=== PATIENT | male | born 1960 | race Caucasian/White ===

== ENCOUNTER 2021-01-31 09:43 | Inpatient (IN) | payer BC ==
[2021-01-31] MEDS ORDERED: SODIUM CHLORIDE 0.9% 500 ML 500 ML IV STA (10:09)
[2021-01-31] MEDS ORDERED: KETOROLAC 15 MG/ML 1 ML VIAL IVP STA (10:09)
[2021-01-31] MEDS ORDERED: cefTRIAXone IN SWFI 1,000 MG/10 ML SYRINGE IVP STA (10:20)
[2021-01-31] MEDS ORDERED: VANCOMYCIN IV PER PHARMACY 1 EACH MISC MISCELLANE PRN (10:20)
[2021-01-31] MEDS ORDERED: VANCOMYCIN 1,750 MG in SODIUM CHLORIDE 0.9% 500 ML 500 ML IVPB STA (10:22)
--- NOTE | 2021-01-31 10:26 | ED ---
Skin/Abscess/FB HPI - General Chief complaint: Skin/Abscess/Foreign Body Stated complaint: Cellulitis on Rt leg Time Seen by Provider: 01/31/21 09:52 Source: patient, family Mode of arrival: ambulatory Limitations: no limitations - History of Present Illness Initial comments: Patient is a 60-year-old male presenting to the emergency Department with comp laints of an infection on his right leg. He states he was seen by his PCP who recommended coming into the ER for evaluation. He noticed a little bit of redness to his right lower leg last week, he states it was small in nature, anterior aspect. He states over the past 3 days it has quickly spread and he has been having fevers. He states yesterday he had a fever 101, has been taking Tylenol which does help. His states that 2 days ago it was about the size of her hand and now it is spread throughout his entire right lower leg and he also has some redness streaking up the medial aspect of his right upper leg. He states he did have an ultrasound as PCPs office yesterday that was nega tive for blood clots of his right and left lower extremities. He woke up this morning with a low-grade temperature, he did take some Tylenol just prior to arrival. Currently his pain is about a 4/10. He denies being diabetic, he takes no prescription medications, only [id number] vitamins. He did go to urgent care yesterday prior to his PCPs office, they started him on Bactrim, he has taken 3 doses. He did take a dose this morning. He has no further complaints. Upon arrival to the ER his vitals are stable. - Related Data Home Medications Medication Instructions Recorded Confirmed Ascorbic Acid [Vitamin C] 1,000 mg PO DAILY 01/31/21 01/31/21 Cholecalciferol [Vitamin D3 (25 100 mcg PO DAILY 01/31/21 01/31/21 Mcg = 1000 Iu)] Multivitamins, Thera [Multivitamin 1 tab PO DAILY 01/31/21 01/31/21 (formulary)] Naproxen Sodium [Aleve] 220 mg PO DAILY PRN 01/31/21 01/31/21 Omeprazole Magnesium [PriLOSEC OTC] 20 mg PO DAILY PRN 01/31/21 01/31/21 Sulfamethox-Tmp 800-160Mg [Bactrim 1 tab PO Q12H 01/31/21 01/31/21 DS 800-160 mg] Zinc 50 mg PO DAILY 01/31/21 01/31/21 Allergies Allergy/AdvReac Type Severity Reaction Status Date / Time Penicillins Allergy Anaphylaxis Verified 01/31/21 10:59 Review of Systems ROS Statement: Those systems with pertinent positive or pertinent negative responses have been documented in the HPI. ROS Other: All systems not noted in ROS Statement are negative. Past Medical History Past Medical History: Hypertension, Myocardial Infarction (ID), Pneumonia History of Any Multi-Drug Resistant Organisms: None Reported Past Surgical History: Heart Catheterization Additional Past Surgical History / Comment(s): lung surery. Past Psychological History: No Psychological Hx Reported Smoking Status: Former smoker Past Alcohol Use History: Occasional Past Drug Use History: None Reported General Exam - General Exam Comments Initial Comments: GENERAL: Patient is well-developed and well-nourished. Patient is nontoxic and in no acute distress. HEAD: Atraumatic, normocephalic. EYES: Pupils equal round and reactive to light, extraocular movements intact, sclera anicteric, conjunctiva are normal. Eyelids were unremarkable. ENT: Nares patent, oropharynx clear without exudates. Moist mucous membranes. NECK: Normal range of motion, supple without lymphadenopathy or JVD. LUNGS: Unlabored respirations. Breath sounds clear to auscultation bilaterally and equal. No wheezes rales or rhonchi. HEART: Regular rate and rhythm without murmurs, rubs or gallops. ABDOMEN: Soft, nontender, normoactive bowel sounds. No guarding, no rebound. No masses appreciated. : Deferred MUSCULOSKELETAL: Normal extremities with adequate strength and normal range of motion, no pitting or edema. No clubbing or cyanosis. NEUROLOGICAL: Patient is alert and oriented x 3. Normal speech, normal gait. PSYCH: Normal mood, normal affect. SKIN: Warm, Dry, normal turgor. Patient has a very large area of cellulitis of his right lower leg that is circumferential wraps around the entire lower leg, he does have some erythematous streaks up the medial aspect of his right upper leg. There are some blisters that are weeping. He is neurovascular intact with normal dorsal pedis pulses. Limitations: no limitations Course Vital Signs 01/31/21 09:44 Temperature 98.6 F Pulse Rate 85 Respiratory 18 Rate Blood Pressure 142/91 O2 Sat by Pulse 96 Oximetry Medical Decision Making - Medical Decision Making Patient is a 60-year-old male here with cellulitis of his right lower leg that has been worsening over the past 3-4 days. He noticed about a week week and a half ago. He has been having fevers over the past 2-3 days, he has been taking Tylenol which does improve the fever. He is also been just generally feeling fatigued and not well. He was started on Bactrim yesterday through urgent care, he stated 3 doses. He also had bilateral lower extremity ultrasounds at his PCPs office, these were negative for DVTs. His vitals are stable today. Labs show a white count of 23.3. Blood cultures and wound culture are pending. Patient was started on Rocephin and think ago. Patient will be admitted for cellulitis. Patient accepted by Dr. Noguera. Case discussed with Dr. Lovelace. Patient is in agreement with this plan of care. - Lab Data Result diagrams: 01/31/21 10:37 01/31/21 10:37 Lab Results 01/31/21 01/31/21 Range/Units 10:37 10:37 WBC 23.3 H (3.8-10.6) k/uL RBC 4.76 (4.30-5.90) m/uL Hgb 15.1 (13.0-17.5) gm/dL Hct 42.8 (39.0-53.0) % MCV 90.0 (80.0-100.0) fL MCH 31.8 (25.0-35.0) pg MCHC 35.3 (31.0-37.0) g/dL RDW 13.0 (11.5-15.5) % Plt Count 168 (150-450) k/uL MPV 8.1 Neutrophils % 95 % Lymphocytes % 2 % Monocytes % 2 % Eosinophils % 0 % Basophils % 0 % Neutrophils # 22.0 H (1.3-7.7) k/uL Lymphocytes # 0.4 L (1.0-4.8) k/uL Monocytes # 0.5 (0-1.0) k/uL Eosinophils # 0.1 (0-0.7) k/uL Basophils # 0.0 (0-0.2) k/uL Sodium 130 L (137-145) mmol/L Potassium 4.4 (3.5-5.1) mmol/L Chloride 96 L (98-107) mmol/L Carbon Dioxide 23 (22-30) mmol/L Anion Gap 11 mmol/L BUN 22 H (9-20) mg/dL Creatinine 0.91 (0.66-1.25) mg/dL Est GFR (CKD-EPI)AfAm >90 (>60 ml/min/1.73 sqM) Est GFR (CKD-EPI)NonAf >90 (>60 ml/min/1.73 sqM) Glucose 124 H (74-99) mg/dL Calcium 8.8 (8.4-10.2) mg/dL Total Bilirubin 1.4 H (0.2-1.3) mg/dL AST 61 H (17-59) U/L ALT 58 H (4-49) U/L Alkaline Phosphatase 132 H (38-126) U/L Total Protein 6.7 (6.3-8.2) g/dL Albumin 3.7 (3.5-5.0) g/dL Disposition Clinical Impression: Cellulitis of right leg, Leukocytosis Disposition: ADMITTED IP TO THIS [facility] Condition: Stable Decision Date: 01/31/21 Decision Time: 11:43
[2021-01-31 11:05] LABS: ALT 58 U/L (4-49); African American GFR (CKD) >90 (>60 ml/min/1.73 sqM); Anion Gap 11 mmol/L; Blood Urea Nitrogen 22 mg/dL (9-20); Calcium 8.8 mg/dL (8.4-10.2); Carbon Dioxide 23 mmol/L (22-30); Chloride 96 mmol/L (98-107); Glucose 124 mg/dL (74-99); Non-African American GFR(CKD) >90 (>60 ml/min/1.73 sqM); Sodium 130 mmol/L (137-145)
[2021-01-31 11:12] LABS: Potassium 4.4 mmol/L (3.5-5.1)
[2021-01-31 11:13] LABS: AST 61 U/L (17-59); Albumin 3.7 g/dL (3.5-5.0); Total Bilirubin 1.4 mg/dL (0.2-1.3); Total Protein 6.7 g/dL (6.3-8.2)
[2021-01-31 11:15] LABS: Alkaline Phosphatase 132 U/L (38-126); Basophils % (A) 0 %; Eosinophils # (A) 0.1 k/uL (0-0.7); Eosinophils % (A) 0 %; HCT 42.8 % (39.0-53.0); HGB 15.1 gm/dL (13.0-17.5); Lymphocytes # (A) 0.4 k/uL (1.0-4.8); Lymphocytes % (A) 2 %; MCH 31.8 pg (25.0-35.0); MCHC 35.3 g/dL (31.0-37.0); Mean Platelet Volume 8.1; Monocytes # (A) 0.5 k/uL (0-1.0); Monocytes % (A) 2 %; Neutrophils % (A) 95 %; Platelet Count 168 k/uL (150-450); RBC 4.76 m/uL (4.30-5.90); WBC 23.3 k/uL (3.8-10.6)
[2021-01-31] MEDS ORDERED: ACETAMINOPHEN TAB 325 MG TAB PO PRN (11:39)
[2021-01-31] MEDS ORDERED: ONDANSETRON 4 MG/2 ML VIAL IVP PRN (11:39)
[2021-01-31] MEDS ORDERED: NALOXONE 0.4 MG/ML 1 ML VIAL IV PRN (11:39)
[2021-01-31] MEDS ORDERED: SODIUM CHLORIDE 0.9% 1,000 ML IV SCH (11:45)
[2021-01-31 11:59] LABS: C Reactive Protein 43.9 mg/dL (<1.0)
--- NOTE | 2021-01-31 12:31 | XR ---
EXAMINATION TYPE: XR tibia fibula RT DATE OF EXAM: 01/31/2021 COMPARISON: NONE HISTORY: Pain TECHNIQUE: Two views are submitted. FINDINGS: The osseous structures are intact. Hypertrophic spurring of the patella narrowing of the medial clau rtment the knee joint. No erosive changes. Is a large soft tissue mass along the lateral margin of th e distal leg. IMPRESSION: 1. Diffuse osteopenia and arthropathy. 2. Lung the lateral margin of the distal soft tissues of the fibula there appears to be a lobulated m asslike density correlate with physical exam
[2021-01-31] MEDS ORDERED: PANTOPRAZOLE 40 MG TABLET PO PRN (13:30)
[2021-01-31 13:33] LABS: Erythrocyte Sedimentation Rate 72 mm/hr (0-15)
--- NOTE | 2021-01-31 13:37 | P.HPIM ---
History of Present Illness H&P Date: 01/31/21 Chief Complaint: Redness and pain of the right leg This is a 60-year-old male with no significant past medical history who presented to the emergency room with worsening redness and pain involving right lower extremity. Patient told me that his problems started last week with a small area of redness on the anterior aspect of the right lower extremity right above the ankle. He said since then he's problem is being getting worse and redness is been expanding and yesterday redness was approximately the size of his palm. He told me that he had a small blister that he punctured with a sterile needle at home but subsequently his pain was worse and decided to go to a local urgent care where he had ultrasound of the right lower extremity that was negative for DVT. Patient was given prescription for Bactrim and was sent home. His told me that patient was complaining of fevers at home. Today, area of erythema expanded significantly and is approximately double the size compared to yesterday. He also had a large blister above his right ankle on the lateral aspect. Patient decided to come to the emergency room for further evaluation. He was started on IV vancomycin and will be admitted to the hospital for further management. Review of Systems Review of system: 14 points review of systems were obtained and were negative except to what were mentioned in the HPI. Past Medical History Past Medical History: Hypertension, Myocardial Infarction (DC), Pneumonia History of Any Multi-Drug Resistant Organisms: None Reported Past Surgical History: Heart Catheterization Additional Past Surgical History / Comment(s): lung surery. Past Psychological History: No Psychological Hx Reported Smoking Status: Former smoker Past Alcohol Use History: Occasional Past Drug Use History: None Reported Medications and Allergies Home Medications Medication Instructions Recorded Confirmed Type Ascorbic Acid [Vitamin C] 1,000 mg PO DAILY 01/31/21 01/31/21 History Cholecalciferol [Vitamin D3 (25 100 mcg PO DAILY 01/31/21 01/31/21 History Mcg = 1000 Iu)] Multivitamins, Thera [Multivitamin 1 tab PO DAILY 01/31/21 01/31/21 History (formulary)] Naproxen Sodium [Aleve] 220 mg PO DAILY PRN 01/31/21 01/31/21 History Omeprazole Magnesium [PriLOSEC OTC] 20 mg PO DAILY PRN 01/31/21 01/31/21 History Sulfamethox-Tmp 800-160Mg [Bactrim 1 tab PO Q12H 01/31/21 01/31/21 History DS 800-160 mg] Zinc 50 mg PO DAILY 01/31/21 01/31/21 History Allergies Allergy/AdvReac Type Severity Reaction Status Date / Time Penicillins Allergy Anaphylaxis Verified 01/31/21 10:59 Physical Exam Vitals: Vital Signs Temp Pulse Resp BP Pulse Ox 01/31/21 12:10 86 18 109/69 98 01/31/21 09:44 98.6 F 85 18 142/91 96 Intake and Output 01/30/21 01/31/21 01/31/21 22:59 06:59 14:59 Other: Weight 117.934 kg General: The patient is awake and alert, in no distress Eye: there is normal conjunctiva bilaterally. Neck: The neck is supple, there is no JVD. Cardiovascular: Normal S1-S2, no S3-S4, no murmurs. Respiratory: Lungs clear to auscultation bilaterally Gastrointestinal: Abdomen is soft, nontender Musculoskeletal: There is no pedal edema on the left Neurological:. Speech is normal. Skin: Skin is warm and dry and there is a circumferential area of erythema involving the right lower extremity extending from above the ankle to the midshin area. There is also what appears to be a large blister measuring approximately 5 cm that appears to contain blood. Patient has palpable dorsalis pedis pulse Results CBC & Chem 7: 01/31/21 10:37 01/31/21 10:37 Labs: Abnormal Lab Results - Last 24 Hours (Table) 01/31/21 01/31/21 Range/Units 10:37 10:37 WBC 23.3 H (3.8-10.6) k/uL Neutrophils # 22.0 H (1.3-7.7) k/uL Lymphocytes # 0.4 L (1.0-4.8) k/uL Sodium 130 L (137-145) mmol/L Chloride 96 L (98-107) mmol/L BUN 22 H (9-20) mg/dL Glucose 124 H (74-99) mg/dL Total Bilirubin 1.4 H (0.2-1.3) mg/dL AST 61 H (17-59) U/L ALT 58 H (4-49) U/L Alkaline Phosphatase 132 H (38-126) U/L C-Reactive Protein 43.9 H (<1.0) mg/dL Assessment and Plan Assessment: This is a 60-year-old male withcan past medical history who presented to the emergency room with worsening erythema of the right lower extremity. He was evaluated in the ER and will be admitted to the hospital for further management of his medical problems noted below. 1. Extensive cellulitis of the right lower extremity, started on IV vancomycin and ceftriaxone. Infectious disease consulted. I also consulted vascular surgery for possible drainage of large bloody blister on his leg. Continue IV fluid hydration with normal saline at 75 mL per hour. Blood culture sent and pending. Leukocytosis reactive to above. We will continue to monitor closely. Repeat lab work in the morning. Patient and his updated about his current clinical condition.
[2021-01-31] MEDS: SODIUM CHLORIDE 0.9% 1,000 ML IV SCH ×2 (14:04→23:23)
[2021-01-31] MEDS: IBUPROFEN 400 MG TAB PO PRN (17:48)
[2021-01-31] MEDS: VANCOMYCIN 1,750 MG in SODIUM CHLORIDE 0.9% 500 ML 500 ML IVPB SCH (23:22)
[2021-02-01] MEDS: IBUPROFEN 400 MG TAB PO PRN ×3 (00:17→19:14)
[2021-02-01 06:06] LABS: Basophils % (A) 0 %; Eosinophils # (A) 0.1 k/uL (0-0.7); Eosinophils % (A) 1 %; HCT 38.9 % (39.0-53.0); HGB 13.4 gm/dL (13.0-17.5); Lymphocytes # (A) 0.6 k/uL (1.0-4.8); Lymphocytes % (A) 4 %; MCH 31.7 pg (25.0-35.0); MCHC 34.5 g/dL (31.0-37.0); MCV 91.8 fL (80.0-100.0); Mean Platelet Volume 7.8; Monocytes # (A) 0.4 k/uL (0-1.0); Monocytes % (A) 3 %; Neutrophils # (A) 12.7 k/uL (1.3-7.7); Neutrophils % (A) 91 %; Platelet Count 164 k/uL (150-450); RBC 4.24 m/uL (4.30-5.90); RDW 13.2 % (11.5-15.5)
[2021-02-01] MEDS: ZINC SULFATE 220 MG CAP PO SCH (07:15)
[2021-02-01] MEDS: CHOLECALCIFEROL 25 MCG (1000 IU) TABLET PO SCH (07:15)
[2021-02-01] MEDS: ASCORBIC ACID 500 MG TAB PO SCH (07:15)
[2021-02-01] MEDS: MULTIVITAMINS, THERA 1 EACH TAB PO SCH (07:19)
--- NOTE | 2021-02-01 07:21 | CONS ---
CONSULTATION DATE OF SERVICE: 01/31/2021. REASON FOR CONSULTATION: Right lower extremity cellulitis. HISTORY OF PRESENT ILLNESS: The patient is a 60-year-old male who presented to hospital with increasing swelling and redness to the right lower extremity. The patient apparently did have an area of trauma with small puncture area to the right leg that has been about 1 or 2 weeks ago. The patient mentioned that he had subsequently healed. However the last few days, the patient was having increasing swelling and redness of the right leg with swelling that has progressively gotten worse for the last 24 hours. The patient was seen in urgent care yesterday with the patient was started on Bactrim DS. However the patient noticed to have increasing swelling and redness to the leg with no blister formation for the last 24 hours. The patient did have a mild dull pain to the leg especially when he stands on it, intensity about 3 to 4 out of 10 with no radiation. With these symptoms, the patient presented to hospital. On arrival to the ER, the patient was afebrile and no fever has been recorded subsequently. The patient did have white count of 23.3 with left shift. 0.91. Liver enzymes mildly elevated. CRP 43.29. Local culture has been obtained which is currently pending. The patient did have x-rays of the tibia and fibula diffuse osteopenia, lobulated masslike density correlate for soft tissue swelling. The patient was started on vancomycin and has been admitted to the hospital. Infectious Disease was consulted for further management of antibiotic therapy. REVIEW OF SYSTEMS: Positive points have been mentioned in HPI. Rest of systems are negative. PAST MEDICAL HISTORY: Hypertension, [place], pneumonia. PAST SURGICAL HISTORY: Heart catheterization. SOCIAL HISTORY: Remote history of smoking. Occasionally drinks. No drug use. FAMILY HISTORY: No pertinent findings noticed. ALLERGIES: PENICILLIN. MEDICATION: Include the patient is currently on vancomycin, Unasyn, IV fluids, Protonix, Zofran and Narcan, Theragran and Zofran, vitamin D3, vitamin C and Tylenol. PHYSICAL EXAMINATION: Blood pressure 152/80 with a pulse of 90, temperature 98.3. He is 98%. GENERAL DESCRIPTION is a middle-aged male lying in bed in no distress. No tachypnea or accessory muscles of respiration use. HEENT: Examination shows no pallor or scleral icterus. Oral mucous membrane is dry. NECK: Trachea central. No thyromegaly. LUNGS unlabored breathing. Clear to auscultation. No wheeze or crackles. HEART S1, S2. Regular rate and rhythm. ABDOMEN soft. No tenderness. No guarding. No rigidity. EXTREMITIES: Right leg did have diffuse swelling and redness with some discoloration and blister formation with clear fluid. NEUROLOGICAL: Patient is awake, alert, oriented times three. Mood and affect normal. LABS: Hemoglobin is 15.1, white count 23.3 with left shift, BUN of 22, creatinine 0.91. Local culture obtained currently pending. X-ray report mentioned above. DIAGNOSTIC IMPRESSION AND PLAN: Patient admitted to the hospital with acute right lower extremity cellulitis in this patient whose symptoms started initially with an area of trauma that healed with subsequent worsening with diffuse swelling and redness and rapid progression in the last 24 hours could be pointing towards possible streptococcal disease or underlying MRSA infection not entirely excluded, failing outpatient oral Bactrim DS therapy. PLAN: 1. Phan the area of the redness. 2. Await vascular surgery evaluation for possible of this blister and culture. 3. Vancomycin, pharmacy to dose target of 15 while watching kidney function closely. 4. We will follow on clinical condition and culture to further adjust medication if needed. Thank you for this consultation. We will follow the patient along with you. MMODL / IJN: [id number] /
[2021-02-01] MEDS: VANCOMYCIN 1,750 MG in SODIUM CHLORIDE 0.9% 500 ML 500 ML IVPB SCH ×2 (10:49→22:39)
[2021-02-01 11:21] LABS: African American GFR (CKD) 106.5 (60.0-200.0); BUN/Creat Ratio 17.78 Ratio (12.00-20.00); Calcium 8.6 mg/dL (8.7-10.3); Non-African American GFR(CKD) 91.9 (60.0-200.0); Potassium 3.2 mmol/L (3.5-5.5)
[2021-02-01] MEDS: LORATADINE 10 MG TAB PO SCH (12:03)
[2021-02-01 13:24] VITALS: BMI 31.6
[2021-02-01] MEDS: SODIUM CHLORIDE 0.9% 1,000 ML IV SCH (15:26)
[2021-02-01] MEDS ORDERED: POTASSIUM CHLORIDE ER 20 MEQ TAB.ER PO STA (16:33)
--- NOTE | 2021-02-01 16:37 | P.PN ---
Subjective Progress Note Date: 02/01/21 Patient is doing fairly well today. He informed me that the large blister on his right leg bursted last night. He believes that the area of erythema is shrinking. His leg unfortunately was not marked last night. I asked nursing staff to market today. Objective - Vital Signs Vital signs: Vital Signs Temp 97.4 F L 02/01/21 11:17 Pulse 98 02/01/21 11:17 Resp 16 02/01/21 11:17 BP 145/79 02/01/21 11:17 Pulse Ox 94 L 02/01/21 11:17 Intake & Output 01/31/21 02/01/21 02/01/21 18:59 06:59 18:59 Output Total 700 400 Balance -700 -400 Weight 117.934 kg 117.934 kg Output: Urine 700 400 Other: Voiding Method Urinal Urinal Toilet Urinal - Exam General: The patient is awake and alert, in no distress Eye: there is normal conjunctiva bilaterally. Neck: The neck is supple, there is no JVD. Cardiovascular: Normal S1-S2, no S3-S4, no murmurs. Respiratory: Lungs clear to auscultation bilaterally Gastrointestinal: Abdomen is soft, nontender Musculoskeletal: There is no pedal edema. Neurological:. Speech is normal. Skin: Skin is warm and dry large area of erythema on the right lower extremity extending from the ankle up to below the knee. There is a new blister formation. There is also area of erythema involving the medial aspect of the right thigh - Labs CBC & Chem 7: 02/01/21 05:33 02/01/21 05:33 Labs: Abnormal Lab Results - Last 24 Hours (Table) 02/01/21 02/01/21 Range/Units 05:33 05:33 WBC 14.0 H (3.8-10.6) k/uL RBC 4.24 L (4.30-5.90) m/uL Hct 38.9 L (39.0-53.0) % Neutrophils # 12.7 H (1.3-7.7) k/uL Lymphocytes # 0.6 L (1.0-4.8) k/uL Sodium 134 L (135-145) mmol/L Potassium 3.2 L (3.5-5.5) mmol/L Chloride 95 L (96-109) mmol/L Calcium 8.6 L (8.7-10.3) mg/dL Microbiology - Last 24 Hours (Table) 01/31/21 10:45 Blood Culture - Preliminary Blood No Growth after 24 hours 01/31/21 10:37 Blood Culture - Preliminary Blood No Growth after 24 hours 01/31/21 10:37 Gram Stain - Preliminary Leg - Right Wound Culture - Preliminary Assessment and Plan Assessment: This is a 60-year-old male withcan past medical history who presented to the emergency room with worsening erythema of the right lower extremity. He was evaluated in the ER and will be admitted to the hospital for further management of his medical problems noted below. 1. Extensive cellulitis of the right lower extremity, started on IV vancomycin. Infectious disease consulted. Patient received aggressive IV fluid hydration since admission. Blood culture negative to date. Leukocytosis reactive to above. We will continue to monitor closely. Repeat lab work in the morning. 2. Hypokalemia, replacement ordered Today, I reviewed his medication list and lab work results. WBC count trending down. DVT prophylaxis with subcu Lovenox. Anticipate discharge home within the next day or 2.
[2021-02-01] MEDS: ENOXAPARIN 40 MG/0.4 ML SYRINGE SQ SCH (16:56)
--- NOTE | 2021-02-01 23:26 | PN ---
PROGRESS NOTE DATE OF SERVICE: 02/01/2021 REASON FOR FOLLOWUP: Right lower extremity cellulitis. INTERVAL HISTORY: Patient is afebrile. The patient is breathing comfortably. The patient denies having any chest pain, shortness of breath or cough. No abdominal pain. The right leg swelling and redness and pain have slightly decreased. PHYSICAL EXAMINATION: Blood pressure 139/73 with pulse of 90, temperature 98.2. He is 97% on room air. General description is a middle-aged male lying in bed in no distress. Respiratory system: Unlabored breathing, clear to auscultation anteriorly. Heart S1, S2. Regular rate and rhythm. Abdomen soft, no tenderness. Right leg swelling and redness has slightly decreased. LABS: Hemoglobin is 13.4, white count 14, BUN of 16, creatinine 0.9. DIAGNOSTIC IMPRESSION AND PLAN: Patient with acute right lower extremity cellulitis. Patient clinically responding to vancomycin to continue while watching his kidney function and culture closely. Continue supportive care. MMODL / IJN: [id number] /
[2021-02-02] MEDS: MULTIVITAMINS, THERA 1 EACH TAB PO SCH (08:33)
[2021-02-02] MEDS: ZINC SULFATE 220 MG CAP PO SCH (08:33)
[2021-02-02] MEDS: ASCORBIC ACID 500 MG TAB PO SCH (08:33)
[2021-02-02] MEDS: LORATADINE 10 MG TAB PO SCH (08:33)
[2021-02-02] MEDS: CHOLECALCIFEROL 25 MCG (1000 IU) TABLET PO SCH (08:33)
[2021-02-02] MEDS: ENOXAPARIN 40 MG/0.4 ML SYRINGE SQ SCH (08:34)
[2021-02-02 09:34] LABS: Basophils % (A) 0 %; Eosinophils # (A) 0.1 k/uL (0-0.7); Eosinophils % (A) 1 %; HCT 38.7 % (39.0-53.0); HGB 13.3 gm/dL (13.0-17.5); Lymphocytes # (A) 0.7 k/uL (1.0-4.8); Lymphocytes % (A) 4 %; MCH 31.9 pg (25.0-35.0); MCHC 34.5 g/dL (31.0-37.0); MCV 92.4 fL (80.0-100.0); Monocytes # (A) 0.4 k/uL (0-1.0); Monocytes % (A) 2 %; Neutrophils # (A) 14.2 k/uL (1.3-7.7); Neutrophils % (A) 91 %; Platelet Count 249 k/uL (150-450); RBC 4.19 m/uL (4.30-5.90); RDW 13.3 % (11.5-15.5); WBC 15.6 k/uL (3.8-10.6)
[2021-02-02 09:54] LABS: African American GFR (CKD) >90 (>60 ml/min/1.73 sqM); Blood Urea Nitrogen 11 mg/dL (9-20); Calcium 8.9 mg/dL (8.4-10.2); Carbon Dioxide 26 mmol/L (22-30); Glucose 139 mg/dL (74-99); Non-African American GFR(CKD) >90 (>60 ml/min/1.73 sqM); Potassium 3.5 mmol/L (3.5-5.1); Sodium 132 mmol/L (137-145)
[2021-02-02] MEDS ORDERED: VANCOMYCIN TROUGH DUE 1 EACH MISC MISCELLANE ONE (10:00)
[2021-02-02 10:06] LABS: Anion Gap 11 mmol/L; Chloride 95 mmol/L (98-107)
[2021-02-02] MEDS: VANCOMYCIN 1,750 MG in SODIUM CHLORIDE 0.9% 500 ML 500 ML IVPB SCH ×2 (11:14→19:36)
[2021-02-02] MEDS ORDERED: SILVER sulfADIAZINE Cream 400 GM 1 APPLIC APPLIC TOPICAL STA (11:57)
--- NOTE | 2021-02-02 16:08 | P.PN ---
Subjective Progress Note Date: 02/02/21 Patient is doing fairly well today. Area of erythema on his neck is shrinking compared to the marker that patient is having usually formed blisters. Objective - Vital Signs Vital signs: Vital Signs Temp 99.1 F 02/02/21 13:06 Pulse 83 02/02/21 13:06 Resp 18 02/02/21 13:06 BP 155/83 02/02/21 13:06 Pulse Ox 96 02/02/21 13:06 Intake & Output 02/01/21 02/02/21 02/02/21 18:59 06:59 18:59 Intake Total 1800 Output Total 400 400 Balance -400 1800 -400 Weight 117.934 kg Intake: Intake, IV Titration 800 Amount Sodium Chloride 0.9% 1, 300 000 ml @ 75 mls/hr IV . [id number] [facility] Rx#:[id number] Vancomycin 1,750 mg In 500 Sodium Chloride 0.9% 500 ml 500 ml @ 167 mls/hr IVPB Q12H [facility] Rx#: [id number] Oral 1000 Output: Urine 400 400 Other: Voiding Method Toilet Toilet Urinal Urinal # Voids 1 4 2 - Exam General: The patient is awake and alert, in no distress Eye: there is normal conjunctiva bilaterally. Neck: The neck is supple, there is no JVD. Cardiovascular: Normal S1-S2, no S3-S4, no murmurs. Respiratory: Lungs clear to auscultation bilaterally Gastrointestinal: Abdomen is soft, nontender Musculoskeletal: There is no pedal edema. Neurological:. Speech is normal. Skin: Skin is warm and dry large area of erythema on the right lower extremity extending from the ankle up to below the knee. There is new blisters formation. There is also area of erythema and induration involving the medial aspect of the right thigh - Labs CBC & Chem 7: 02/02/21 09:12 02/02/21 09:12 Labs: Abnormal Lab Results - Last 24 Hours (Table) 02/02/21 02/02/21 Range/Units 09:12 09:12 WBC 15.6 H (3.8-10.6) k/uL RBC 4.19 L (4.30-5.90) m/uL Hct 38.7 L (39.0-53.0) % Neutrophils # 14.2 H (1.3-7.7) k/uL Lymphocytes # 0.7 L (1.0-4.8) k/uL Sodium 132 L (137-145) mmol/L Chloride 95 L (98-107) mmol/L Glucose 139 H (74-99) mg/dL Microbiology - Last 24 Hours (Table) 01/31/21 10:37 Gram Stain - Final Leg - Right Wound Culture - Final 01/31/21 10:45 Blood Culture - Preliminary Blood No Growth after 48 hours 01/31/21 10:37 Blood Culture - Preliminary Blood No Growth after 48 hours Assessment and Plan Assessment: This is a 60-year-old male with past medical history who presented to the emergency room with worsening erythema of the right lower extremity. He was evaluated in the ER and will be admitted to the hospital for further management of his medical problems noted below. 1. Extensive cellulitis of the right lower extremity, started on IV vancomycin. Infectious disease and vascular surgery consulted. Patient received aggressive IV fluid hydration since admission. Blood culture negative to date. We will continue to monitor closely. Repeat lab work in the morning. 2. Hypokalemia, replacement ordered Today, I reviewed his medication list and lab work results. DVT prophylaxis with subcu Lovenox. Continue local care and leg wrapping as directed.
[2021-02-02] MEDS ORDERED: POTASSIUM CHLORIDE ER 20 MEQ TAB.ER PO STA (16:09)
--- NOTE | 2021-02-02 18:23 | CONS ---
CONSULTATION HISTORY OF PRESENT ILLNESS: Emiliano Roy is a 60-year-old pleasant gentleman who came to [facility] with history of marked swelling of the right lower extremity with the blister formation. The patient had an episode of trauma to the anterior aspect of the lower leg with small area of puncture wound which caused marked cellulitis of the right lower extremity and blister formation on the medial posterior aspect of the right lower leg. Patient was treated as an outpatient with Bactrim DS and this progressed with marked redness and swelling and has been admitted. The patient has been seen by Infectious Disease and started on vancomycin. The patient also has a callus formation noted in the plantar distal aspect of the right foot and left foot. PAST MEDICAL HISTORY: History of hypertension, pneumonia and OR. SURGICAL HISTORY: Patient had heart catheterization in the past. SOCIAL HISTORY: Occasionally drinks and no history of drug use. ALLERGIES: PATIENT HAS ALLERGY TO PENICILLIN. PHYSICAL EXAMINATION: Patient was seen in his room, lying comfortably in bed. NECK: Supple. Trachea central. CHEST: Clear. ABDOMEN: Soft. Femorals are 1+. Patient has marked cellulitis of the right lower extremity and also there is some redness noted on the medial aspect of the right thigh area. There is a blister formation noted on the posterior aspect of the right lower leg. Some of the blisters started leaking fluid. IMPRESSION: Marked cellulitis with blister formation. PLAN: Since patient started leaking the fluid from the blister, we used the Silvadene cream with compression wrap, two pillow evaluation and patient is under care of Infectious Disease. The patient may need debridement. We will follow with you. Thank you for this consultation. MMODL / IJN: [id number] /
--- NOTE | 2021-02-03 00:30 | PN ---
PROGRESS NOTE DATE OF SERVICE: 02/02/2021 REASON FOR FOLLOWUP: Right lower extremity cellulitis. INTERVAL HISTORY: The patient is afebrile. He is breathing comfortably. Still has significant swelling and redness and blister formation to the right lower extremity. Overall pain has decreased. No chest pain, shortness of breath or cough. No abdominal pain. No diarrhea. EXAMINATION: Blood pressure 168/87 with a pulse of 92, temperature 98.1. He is 95% on room air. General description is a middle-aged male lying in bed in no distress. Respiratory system: Unlabored breathing, clear to auscultation anteriorly. Heart S1, S2. Regular rate and rhythm. Abdomen soft, no tenderness. Right leg swelling and redness has minimally decreased. LABS: Hemoglobin is 19.1, white count 15.6, BUN of 11, creatinine 0.74. culture negative. Blood culture negative. DIAGNOSTIC IMPRESSION AND PLAN: Patient with extensive right lower extremity cellulitis with multiple blister formation. Patient to continue with vancomycin while waiting for the culture to finalize. May benefit from mild compression dressing to keep some of the swelling down. Continue supportive care. MMODL / IJN: [id number] /
[2021-02-03] MEDS: IPRATROPIUM-ALBUTEROL 3 ML NEB INHALATION PRN ×4 (01:15→20:11)
[2021-02-03] MEDS: VANCOMYCIN 1,750 MG in SODIUM CHLORIDE 0.9% 500 ML 500 ML IVPB SCH ×2 (03:40→11:41)
[2021-02-03 05:57] LABS: Basophils # (A) 0.1 k/uL (0-0.2); Basophils % (A) 0 %; Eosinophils # (A) 0.1 k/uL (0-0.7); Eosinophils % (A) 1 %; HCT 36.2 % (39.0-53.0); HGB 12.4 gm/dL (13.0-17.5); Lymphocytes # (A) 0.7 k/uL (1.0-4.8); Lymphocytes % (A) 4 %; MCH 31.5 pg (25.0-35.0); MCHC 34.3 g/dL (31.0-37.0); MCV 91.7 fL (80.0-100.0); Mean Platelet Volume 7.1; Monocytes # (A) 0.8 k/uL (0-1.0); Monocytes % (A) 5 %; Neutrophils # (A) 14.3 k/uL (1.3-7.7); Neutrophils % (A) 88 %; Platelet Count 287 k/uL (150-450); RBC 3.95 m/uL (4.30-5.90); RDW 13.2 % (11.5-15.5); WBC 16.2 k/uL (3.8-10.6)
[2021-02-03 06:05] LABS: African American GFR (CKD) >90 (>60 ml/min/1.73 sqM); Anion Gap 10 mmol/L; Blood Urea Nitrogen 9 mg/dL (9-20); Calcium 8.6 mg/dL (8.4-10.2); Carbon Dioxide 24 mmol/L (22-30); Chloride 95 mmol/L (98-107); Glucose 119 mg/dL (74-99); Magnesium 1.9 mg/dL (1.6-2.3); Non-African American GFR(CKD) >90 (>60 ml/min/1.73 sqM); Potassium 3.6 mmol/L (3.5-5.1); Sodium 129 mmol/L (137-145)
[2021-02-03 06:18] LABS: C Reactive Protein 17.8 mg/dL (<1.0)
[2021-02-03 06:46] LABS: Erythrocyte Sedimentation Rate 93 mm/hr (0-15)
[2021-02-03] MEDS: MULTIVITAMINS, THERA 1 EACH TAB PO SCH (09:04)
[2021-02-03] MEDS: ASCORBIC ACID 500 MG TAB PO SCH (09:04)
[2021-02-03] MEDS: CHOLECALCIFEROL 25 MCG (1000 IU) TABLET PO SCH (09:04)
[2021-02-03] MEDS: ENOXAPARIN 40 MG/0.4 ML SYRINGE SQ SCH (09:04)
[2021-02-03] MEDS: LORATADINE 10 MG TAB PO SCH (09:04)
[2021-02-03] MEDS: ZINC SULFATE 220 MG CAP PO SCH (09:04)
[2021-02-03] MEDS: SILVER sulfADIAZINE Cream 400 GM 1 APPLIC APPLIC TOPICAL SCH (09:04)
--- NOTE | 2021-02-03 14:00 | P.PN ---
Subjective Progress Note Date: 02/03/21 No significant change compared to yesterday. Right lower extremity covered with Silvadene cream Objective - Vital Signs Vital signs: Vital Signs Temp 98.5 F 02/03/21 11:36 Pulse 86 02/03/21 11:36 Resp 18 02/03/21 11:36 BP 137/83 02/03/21 11:36 Pulse Ox 95 02/03/21 11:36 Intake & Output 02/02/21 02/03/21 02/03/21 18:59 06:59 18:59 Intake Total 500 1600 Output Total 400 800 Balance 100 1600 -800 Weight 117.934 kg Intake: Intake, IV Titration 500 1000 Amount Vancomycin 1,750 mg In 500 1000 Sodium Chloride 0.9% 500 ml 500 ml @ 167 mls/hr IVPB Q8H [facility] Rx#: [id number] Oral 600 Output: Urine 400 800 Other: Voiding Method Toilet Urinal # Voids 2 3 2 - Labs CBC & Chem 7: 02/03/21 05:25 02/03/21 05:25 Labs: Abnormal Lab Results - Last 24 Hours (Table) 02/03/21 02/03/21 Range/Units 05:25 05:25 WBC 16.2 H (3.8-10.6) k/uL RBC 3.95 L (4.30-5.90) m/uL Hgb 12.4 L (13.0-17.5) gm/dL Hct 36.2 L (39.0-53.0) % Neutrophils # 14.3 H (1.3-7.7) k/uL Lymphocytes # 0.7 L (1.0-4.8) k/uL ESR 93 H (0-15) mm/hr Sodium 129 L (137-145) mmol/L Chloride 95 L (98-107) mmol/L Glucose 119 H (74-99) mg/dL C-Reactive Protein 17.8 H (<1.0) mg/dL Microbiology - Last 24 Hours (Table) 01/31/21 10:45 Blood Culture - Preliminary Blood No Growth after 72 hours 01/31/21 10:37 Blood Culture - Preliminary Blood No Growth after 72 hours 01/31/21 10:37 Gram Stain - Final Leg - Right Wound Culture - Final Assessment and Plan Assessment: This is a 60-year-old male with past medical history who presented to the emergency room with worsening erythema of the right lower extremity. He was evaluated in the ER and will be admitted to the hospital for further management of his medical problems noted below. 1. Extensive cellulitis of the right lower extremity, started on IV vancomycin and switch to IV cefazolin on 02/03. Infectious disease and vascular surgery consulted. Patient received aggressive IV fluid hydration since admission. Blood culture negative to date. We will continue to monitor closely. Repeat lab work in the morning. 2. Hypokalemia, replacement ordered Today, I reviewed his medication list and lab work results. DVT prophylaxis with subcu Lovenox. Continue local care and leg wrapping with Silvadene cream as directed.
[2021-02-03] MEDS: IBUPROFEN 400 MG TAB PO PRN (14:49)
--- NOTE | 2021-02-03 16:27 | US ---
EXAMINATION TYPE: US venous doppler duplex LE RT DATE OF EXAM: 02/03/2021 4:16 PM COMPARISON: NONE CLINICAL HISTORY: 60-year-old male cellulitis of lower leg; increased swelling/redness. Patient is on blood thinners. Leg redness. Swelling. SIDE PERFORMED: Right TECHNIQUE: The lower extremity deep venous system is examined utilizing real time linear array sonog syd with graded compression, doppler sonography and color-flow sonography. FINDINGS: VESSELS IMAGED: Common Femoral Vein Deep Femoral Vein Greater Saphenous Vein * Femoral Vein Popliteal Vein Small Saphenous Vein * Proximal Calf Veins (* superficial vessels) Right Leg: Negative for DVT. Prominent enlarged lymph nodes seen in right groin measuring up to 3.0 x 3.0 x 1.3 cm. IMPRESSION: 1. No evidence for DVT within the right lower extremity from the groin to the upper calf. 2. Prominent right inguinal lymph nodes measuring up to 3.0 cm, suspected reactive/post inflammatory given preservation of the fatty hilum. These should be followed clinically to ensure resolution.
--- NOTE | 2021-02-03 16:36 | PN ---
PROGRESS NOTE DATE OF SERVICE: 02/03/2021 REASON FOR FOLLOWUP: Right lower extremity cellulitis. INTERVAL HISTORY: The patient is afebrile. The patient is breathing comfortably. He is having significant swelling and redness to the right leg. No worsening pain. No chest pain. Has been complaining of some shortness of breath. No cough. No sputum production. PHYSICAL EXAMINATION: Blood pressure 137/83, pulse of 83, temperature 98.5. He is 95% 2 L nasal cannula. General description is a middle-aged male lying in bed in no distress. Respiratory system: Unlabored breathing, clear to auscultation anteriorly. Heart S1, S2. Regular rate and rhythm. Abdomen soft, no tenderness. Right leg swelling and redness has mildly decreased. LABS: Hemoglobin is 12.4, white count 16.2, creatinine is 0.6. Vancomycin trough was low at 9.5. Culture has been negative. DIAGNOSTIC IMPRESSION AND PLAN: Patient with acute right lower extremity cellulitis with very slow clinical response. Culture has been negative for any resistant pathogen. The patient did have a PENICILLIN ALLERGY but has tolerated Keflex. We will order cefazolin 2 grams q.8 hours and monitor clinical course closely. The patient was and will with IV or oral antibiotics. MMODL / IJN: [id number] /
--- NOTE | 2021-02-03 16:58 | PN ---
PROGRESS NOTE This is 60 -year-old gentleman. He came with marked history of swelling of the right lower extremity. There was marked cellulitis and multiple blisters. The patient last night had some shortness of breath. Today he is feeling better. We have been using IV antibiotic and Silvadene cream and compression wrap. His swelling and redness . We will continue that. I ordered a venous ultrasound of the right femoral and popliteal vein to be done today. In the meantime, we will continue the present treatment. MMODL / IJN: [id number] /
[2021-02-04 07:19] LABS: African American GFR (CKD) >90 (>60 ml/min/1.73 sqM); Non-African American GFR(CKD) >90 (>60 ml/min/1.73 sqM)
[2021-02-04] MEDS: IPRATROPIUM-ALBUTEROL 3 ML NEB INHALATION PRN ×4 (07:27→19:55)
[2021-02-04] MEDS: SILVER sulfADIAZINE Cream 400 GM 1 APPLIC APPLIC TOPICAL SCH (08:34)
[2021-02-04] MEDS: ENOXAPARIN 40 MG/0.4 ML SYRINGE SQ SCH (08:34)
[2021-02-04] MEDS: ZINC SULFATE 220 MG CAP PO SCH (08:34)
[2021-02-04] MEDS: CHOLECALCIFEROL 25 MCG (1000 IU) TABLET PO SCH (08:34)
[2021-02-04] MEDS: ASCORBIC ACID 500 MG TAB PO SCH (08:34)
[2021-02-04] MEDS: LORATADINE 10 MG TAB PO SCH (08:34)
[2021-02-04] MEDS: MULTIVITAMINS, THERA 1 EACH TAB PO SCH (08:34)
--- NOTE | 2021-02-04 12:46 | P.PN ---
Subjective Progress Note Date: 02/04/21 Patient is doing fairly well today. His right leg was debrided by vascular surgery this morning and then skin was removed. Currently her right leg is wrapped with Rolando dressing and Rik wrap. Objective - Vital Signs Vital signs: Vital Signs Temp 97.3 F L 02/04/21 04:34 Pulse 80 02/04/21 11:11 Resp 18 02/04/21 04:34 BP 165/95 02/04/21 04:34 Pulse Ox 95 02/04/21 04:34 Intake & Output 02/03/21 02/04/21 02/04/21 18:59 06:59 18:59 Intake Total 300 1100 Output Total 800 300 Balance -500 1100 -300 Weight 117.934 kg Intake: Intake, IV Titration 300 100 Amount Vancomycin 1,750 mg In 250 Sodium Chloride 0.9% 500 ml 500 ml @ 167 mls/hr IVPB Q8H [facility] Rx#: [id number] ceFAZolin 2 gm In Sodium 50 100 Chloride 0.9% 50 ml @ 100 mls/hr IVPB Q8H [facility] Rx#: [id number] Oral 1000 Output: Urine 800 300 Other: Voiding Method Toilet Toilet Urinal Urinal # Voids 2 4 - Exam General: The patient is awake and alert, in no distress Eye: there is normal conjunctiva bilaterally. Neck: The neck is supple, there is no JVD. Cardiovascular: Normal S1-S2, no S3-S4, no murmurs. Respiratory: Lungs clear to auscultation bilaterally Gastrointestinal: Abdomen is soft, nontender Musculoskeletal: There is no pedal edema on the left. The right lower extremity wrapped with clean dressing/Rik wrap up to the knee Neurological:. Speech is normal. Skin: Skin is warm and dry l - Labs CBC & Chem 7: 02/03/21 05:25 02/04/21 06:20 Labs: Microbiology - Last 24 Hours (Table) 01/31/21 10:45 Blood Culture - Preliminary Blood No Growth after 72 hours 01/31/21 10:37 Blood Culture - Preliminary Blood No Growth after 72 hours Assessment and Plan Assessment: This is a 60-year-old male with past medical history who presented to the emergency room with worsening erythema of the right lower extremity. He was evaluated in the ER and will be admitted to the hospital for further management of his medical problems noted below. 1. Extensive cellulitis of the right lower extremity, started on IV vancomycin and switch to IV cefazolin on 02/03. Infectious disease and vascular surgery consulted. Status post debridement and removal of skin on 02/04 by vascular surgery. Patient received aggressive IV fluid hydration since admission. Blood culture negative to date. We will continue to monitor closely. Repeat lab work in the morning. 2. Hypokalemia, replaced Today, I reviewed his medication list and lab work results. DVT prophylaxis with subcu Lovenox. Continue local care and leg wrapping with Silvadene cream as directed.
--- NOTE | 2021-02-04 13:07 | PN ---
PROGRESS NOTE This is a 60-year-old gentleman, history of diabetes, COPD, history of sleep apnea. Patient came with marked cellulitis and multiple blister formation on the right lower extremity. The patient had a venous ultrasound which was negative for DVT. We have been treating with the Silvadene cream and compression wrap. Today we changed the dressing. The patient had blisters, are peeling off and we removed the superficial skin on the top of the ulcer. The wound was cleaned with saline and Aquacel Silver applied to the right lower extremity. PLAN: We will change the dressing on Saturday with Aquacel Silver. If the patient goes home, we will follow up in the wound clinic. MMODL / IJN: [id number] /
[2021-02-04] MEDS: HYDROcodone/APAP 10-325MG 1 EACH TAB PO PRN (14:19)
[2021-02-04] MEDS: CLINDAMYCIN 900 MG in DEXTROSE 5% IN WATER 50 ML IVPB SCH ×4 (16:42→23:35)
--- NOTE | 2021-02-04 17:24 | PN ---
PROGRESS NOTE DATE OF SERVICE: 02/04/2021 REASON FOR FOLLOWUP: Right lower extremity cellulitis. INTERVAL HISTORY: The patient is afebrile. The patient is breathing comfortably. Overall pain and discomfort to the right leg has slightly decreased. No chest pain, shortness of breath or cough. No abdominal pain. No diarrhea. PHYSICAL EXAMINATION: Blood pressure 131/80 with a pulse of 81, temperature 98. He is 92% on room air. General description is a middle-aged male up in the bed in no distress. Respiratory system: Unlabored breathing, clear to auscultation anteriorly. Heart S1, S2. Regular rate and rhythm. Right leg is currently dressed. Right thigh redness no worsening. DIAGNOSTIC IMPRESSION AND PLAN: Patient with extensive right lower extremity cellulitis, slow response to vancomycin. Local culture negative. Patient to continue with cefazolin. We will add clindamycin for added benefit and monitor his clinical course closely. Continue supportive care. MMODL / IJN: [id number] /
[2021-02-05] MEDS: guaiFENesin 600 MG TABLET.ER PO PRN ×2 (00:20→19:35)
[2021-02-05 04:42] LABS: Basophils # (A) 0.1 k/uL (0-0.2); Basophils % (A) 1 %; Eosinophils # (A) 0.3 k/uL (0-0.7); Eosinophils % (A) 2 %; HCT 35.4 % (39.0-53.0); Lymphocytes # (A) 0.8 k/uL (1.0-4.8); Lymphocytes % (A) 5 %; MCH 31.3 pg (25.0-35.0); MCHC 33.9 g/dL (31.0-37.0); MCV 92.4 fL (80.0-100.0); Mean Platelet Volume 7.2; Monocytes # (A) 0.5 k/uL (0-1.0); Monocytes % (A) 3 %; Neutrophils # (A) 14.2 k/uL (1.3-7.7); Neutrophils % (A) 89 %; Platelet Count 382 k/uL (150-450); RBC 3.83 m/uL (4.30-5.90); RDW 13.2 % (11.5-15.5)
[2021-02-05] MEDS: HYDROcodone/APAP 10-325MG 1 EACH TAB PO PRN ×2 (04:56→23:28)
[2021-02-05] MEDS: CLINDAMYCIN 900 MG in DEXTROSE 5% IN WATER 50 ML IVPB SCH ×6 (07:18→23:32)
[2021-02-05] MEDS: IPRATROPIUM-ALBUTEROL 3 ML NEB INHALATION PRN ×4 (07:31→19:54)
[2021-02-05] MEDS: LORATADINE 10 MG TAB PO SCH (08:41)
[2021-02-05] MEDS: ENOXAPARIN 40 MG/0.4 ML SYRINGE SQ SCH (08:41)
[2021-02-05] MEDS: ASCORBIC ACID 500 MG TAB PO SCH (08:41)
[2021-02-05] MEDS: MULTIVITAMINS, THERA 1 EACH TAB PO SCH (08:41)
[2021-02-05] MEDS: CHOLECALCIFEROL 25 MCG (1000 IU) TABLET PO SCH (08:41)
[2021-02-05] MEDS: ZINC SULFATE 220 MG CAP PO SCH (08:42)
[2021-02-05] MEDS: SILVER sulfADIAZINE Cream 400 GM 1 APPLIC APPLIC TOPICAL SCH (08:42)
[2021-02-05 10:01] LABS: Anion Gap 9.2 mmol/L (4.00-12.00); BUN/Creat Ratio 17.14 Ratio (12.00-20.00); C Reactive Protein 11.1 mg/dL (0.0-0.8); Calcium 8.7 mg/dL (8.7-10.3); Carbon Dioxide 28.8 mmol/L (21.6-31.8); Magnesium 1.7 mg/dL (1.5-2.4); Non-African American GFR(CKD) 101.9 (60.0-200.0); Potassium 4.2 mmol/L (3.5-5.5)
--- NOTE | 2021-02-05 14:02 | P.PN ---
Subjective Progress Note Date: 02/05/21 Patient is doing fairly well today. His right leg was debrided by vascular surgery this morning and then skin was removed. Currently her right leg is wrapped with Kclean dressing and Rik wrap. Objective - Vital Signs Vital signs: Vital Signs Temp 98.2 F 02/05/21 11:48 Pulse 79 02/05/21 11:48 Resp 18 02/05/21 11:48 BP 129/85 02/05/21 11:48 Pulse Ox 96 02/05/21 11:48 Intake & Output 02/04/21 02/05/21 02/05/21 18:59 06:59 18:59 Output Total 500 250 Balance -500 -250 Output: Urine 500 250 Other: Voiding Method Toilet Toilet Toilet Urinal Urinal Urinal # Voids 2 5 - Exam General: The patient is awake and alert, in no distress Eye: there is normal conjunctiva bilaterally. Neck: The neck is supple, there is no JVD. Cardiovascular: Normal S1-S2, no S3-S4, no murmurs. Respiratory: Lungs clear to auscultation bilaterally Gastrointestinal: Abdomen is soft, nontender Musculoskeletal: There is no pedal edema on the left. The right lower extremity wrapped with clean dressing/Rik wrap up to the knee Neurological:. Speech is normal. Skin: Skin is warm and dry l - Labs CBC & Chem 7: 02/05/21 03:27 02/05/21 03:27 Labs: Abnormal Lab Results - Last 24 Hours (Table) 02/05/21 02/05/21 Range/Units 03:27 03:27 WBC 16.0 H (3.8-10.6) k/uL RBC 3.83 L (4.30-5.90) m/uL Hgb 12.0 L (13.0-17.5) gm/dL Hct 35.4 L (39.0-53.0) % Neutrophils # 14.2 H (1.3-7.7) k/uL Lymphocytes # 0.8 L (1.0-4.8) k/uL Sodium 132 L (135-145) mmol/L Chloride 94 L (96-109) mmol/L Glucose 111 H (70-110) mg/dL C-Reactive Protein 11.1 H (0.0-0.8) mg/dL Microbiology - Last 24 Hours (Table) 01/31/21 10:45 Blood Culture - Preliminary Blood No Growth after 120 hours 01/31/21 10:37 Blood Culture - Preliminary Blood No Growth after 120 hours Assessment and Plan Assessment: This is a 60-year-old male with past medical history who presented to the emergency room with worsening erythema of the right lower extremity. He was evaluated in the ER and will be admitted to the hospital for further management of his medical problems noted below. 1. Extensive cellulitis of the right lower extremity, started on IV vancomycin and switch to IV cefazolin on 02/03. Infectious disease and vascular surgery consulted. Status post debridement and removal of skin on 02/04 by vascular surgery. Patient received aggressive IV fluid hydration since admission. Blood culture negative to date. We will continue to monitor closely. Repeat lab work in the morning. 2. Hypokalemia, replaced Today, I reviewed his medication list and lab work results. DVT prophylaxis with subcu Lovenox. Continue local care and leg wrapping with Silvadene cream as directed.
--- NOTE | 2021-02-05 16:25 | US ---
EXAMINATION TYPE: US venous doppler duplex LE RT DATE OF EXAM: 02/05/2021 4:01 PM COMPARISON: NONE CLINICAL HISTORY: r/o DVT. repeat scan from two days ago, no h/o dvt, swelling and cellulitis in lowe r right leg, red thigh, patient states swelling has gone down a lot SIDE PERFORMED: Right TECHNIQUE: The lower extremity deep venous system is examined utilizing real time linear array sonog syd with graded compression, doppler sonography and color-flow sonography. VESSELS IMAGED: Common Femoral Vein Deep Femoral Vein Greater Saphenous Vein * Femoral Vein Popliteal Vein Small Saphenous Vein * Proximal Calf Veins (* superficial vessels) Right Leg: Negative for DVT IMPRESSION: No evidence of deep vein thrombosis in the right leg.
--- NOTE | 2021-02-06 06:41 | PN ---
PROGRESS NOTE DATE OF SERVICE: 02/05/2021 REASON FOR FOLLOWUP: Right lower extremity cellulitis. INTERVAL HISTORY: The patient has been afebrile. The patient is breathing comfortably. No chest pain. No shortness of breath, no cough. No abdominal pain. Overall pain and discomfort to the right leg has slightly decreased intensity. PHYSICAL EXAMINATION: Blood pressure 143/83, pulse of 85, temperature 98.1. He is 98% on 2 L nasal cannula. General description is an elderly male lying in bed in no distress. Respiratory system: Unlabored breathing, clear to auscultation anteriorly. Heart S1, S2. Regular rate and rhythm. Abdomen soft, no tenderness. Left leg swelling and redness has slightly decreased. LABS: White count still elevated. CRP is down to 11.1. DIAGNOSTIC IMPRESSION AND PLAN: Patient with acute right lower extremity cellulitis with very slow clinical response. The patient will benefit from a midline and outpatient IV daptomycin for at least 2 weeks and close outpatient followup. MMODL / IJN: [id number] /
[2021-02-06] MEDS: ASCORBIC ACID 500 MG TAB PO SCH (07:37)
[2021-02-06] MEDS: CLINDAMYCIN 900 MG in DEXTROSE 5% IN WATER 50 ML IVPB SCH ×2 (07:37)
[2021-02-06] MEDS: ENOXAPARIN 40 MG/0.4 ML SYRINGE SQ SCH (07:38)
[2021-02-06] MEDS: CHOLECALCIFEROL 25 MCG (1000 IU) TABLET PO SCH (07:38)
[2021-02-06] MEDS: SILVER sulfADIAZINE Cream 400 GM 1 APPLIC APPLIC TOPICAL SCH (07:38)
[2021-02-06] MEDS: LORATADINE 10 MG TAB PO SCH (07:38)
[2021-02-06] MEDS: ZINC SULFATE 220 MG CAP PO SCH (07:38)
[2021-02-06] MEDS: MULTIVITAMINS, THERA 1 EACH TAB PO SCH (07:38)
[2021-02-06 08:01] LABS: Basophils # (A) 0.1 k/uL (0-0.2); Basophils % (A) 1 %; Eosinophils # (A) 0.2 k/uL (0-0.7); Eosinophils % (A) 2 %; HCT 37.1 % (39.0-53.0); HGB 12.5 gm/dL (13.0-17.5); Lymphocytes # (A) 0.8 k/uL (1.0-4.8); Lymphocytes % (A) 6 %; MCHC 33.7 g/dL (31.0-37.0); MCV 92.2 fL (80.0-100.0); Mean Platelet Volume 6.9; Monocytes # (A) 0.4 k/uL (0-1.0); Monocytes % (A) 3 %; Neutrophils % (A) 87 %; Platelet Count 435 k/uL (150-450); RBC 4.03 m/uL (4.30-5.90); WBC 12.7 k/uL (3.8-10.6)
[2021-02-06] MEDS: IPRATROPIUM-ALBUTEROL 3 ML NEB INHALATION PRN ×2 (08:06→11:23)
[2021-02-06] MEDS: HYDROcodone/APAP 10-325MG 1 EACH TAB PO PRN ×2 (10:16→16:10)
[2021-02-06 12:32] VITALS: BP 132/79; PULSE 78; RESP 16; TEMP 98.2
--- NOTE | 2021-02-06 13:37 | PN ---
PROGRESS NOTE DATE OF SERVICE: 02/06/2021 REASON FOR FOLLOW UP: Right lower extremity cellulitis. INTERVAL HISTORY: The patient is afebrile. The patient has been feeling better, breathing comfortably. No chest pain, shortness of breath, cough, no abdominal pain. Overall pain and discomfort to the right leg has slightly decreased. PHYSICAL EXAMINATION: Blood pressure 132/79, pulse of 78, temperature 98.2. She is 95% on 2 L nasal cannula. General description is a middle-aged male up in the bed in no distress. Respiratory system: Unlabored breathing, clear to auscultation anteriorly. Heart S1, S2. Regular rate and rhythm. Abdomen soft, no tenderness. LABS: Hemoglobin is 12.5, white count 12.7, creatinine is 0.7. DIAGNOSTIC IMPRESSION AND PLAN: Patient with extensive right leg wound with secondary cellulitis has shown some clinical improvement. However, the patient did have extensive infection. Will benefit from IV antibiotic on discharge. We will transition to daptomycin 5 mg daily, which is once a day, which can be in the outpatient setting. Local care with dry Aquacel Silver dressing and follow up with me in the [facility] Care [facility] next week. Questions and concerns were answered. MMODL / IJN: [id number] /
[2021-02-06] MEDS ORDERED: DAPTOmycin 500 MG in SODIUM CHLORIDE 0.9% 50 ML IVPB SCH (14:00)
--- NOTE | 2021-02-06 14:34 | P.DS ---
Providers Date of admission: 01/31/21 11:39 Expected date of discharge: 02/06/21 Attending physician: Bessy Noguera Consults: 01/31/21 13:28 Consult Physician Routine Consulting Provider: Maurice Barry Consult Reason/Comments: Large/bloody blister Do you want consulting provider notified?: Yes 01/31/21 13:32 Consult Physician Routine Consulting Provider: Hamlet High Consult Reason/Comments: Severe cellulitis Do you want consulting provider notified?: Yes Primary care physician: Cody Hoffman [facility] Course: This is a 60-year-old male with past medical history who presented to the emergency room with worsening erythema of the right lower extremity. He was evaluated in the ER and will be admitted to the hospital for further management of his medical problems noted below. 1. Extensive cellulitis of the right lower extremity, started on IV vancomycin and switch to IV cefazolin on 02/03. Infectious disease and vascular surgery consulted. Status post debridement and removal of skin on 02/04 by vascular surgery. Patient received aggressive IV fluid hydration since admission. Blood culture negative to date. 2. Hypokalemia, replaced Patient was seen, evaluated, and examined by me on the day of discharge. He will be discharged home on IV daptomycin as directed by infectious disease. Home health care was set up. He will follow-up in the wound care clinic as directed. Patient Condition at Discharge: Stable Plan - Discharge Summary Discharge Rx Participant: No New Discharge Prescriptions: New HYDROcodone/APAP 5-325MG [[place] 5-325] 1 tab PO Q6HR PRN 3 Days #12 tab PRN Reason: Pain DAPTOmycin [Cubicin] 500 mg IV DAILY #14 bag Albuterol Inhaler [Ventolin Hfa Inhaler] 1 puff INHALATION RT-TID PRN #1 each PRN Reason: Shortness Of Breath Continue Ascorbic Acid [Vitamin C] 1,000 mg PO DAILY Multivitamins, Thera [Multivitamin (formulary)] 1 tab PO DAILY Omeprazole Magnesium [PriLOSEC OTC] 20 mg PO DAILY PRN PRN Reason: Heartburn Cholecalciferol [Vitamin D3 (25 Mcg = 1000 Iu)] 100 mcg PO DAILY Zinc 50 mg PO DAILY Discontinued Sulfamethox-Tmp 800-160Mg [Bactrim DS 800-160 mg] 1 tab PO Q12H Naproxen Sodium [Aleve] 220 mg PO DAILY PRN PRN Reason: Pain Discharge Medication List Ascorbic Acid [Vitamin C] 1,000 mg PO DAILY 01/31/21 [History] Cholecalciferol [Vitamin D3 (25 Mcg = 1000 Iu)] 100 mcg PO DAILY 01/31/21 [H istory] Multivitamins, Thera [Multivitamin (formulary)] 1 tab PO DAILY 01/31/21 [History] Omeprazole Magnesium [PriLOSEC OTC] 20 mg PO DAILY PRN 01/31/21 [History] Zinc 50 mg PO DAILY 01/31/21 [History] Albuterol Inhaler [Ventolin Hfa Inhaler] 1 puff INHALATION RT-TID PRN #1 each 02/06/21 [Rx] DAPTOmycin [Cubicin] 500 mg IV DAILY #14 bag 02/06/21 [Rx] HYDROcodone/APAP 5-325MG [[place] 5-325] 1 tab PO Q6HR PRN 3 Days #12 tab 02/06/21 [Rx] Follow up Appointment(s)/Referral(s): Cody Hoffman MD [Primary Care Provider] - 1-2 days Hamlet High MD [STAFF PHYSICIAN] - 1 Week Activity/Diet/Wound Care/Special Instructions: Local wound care with a dry Aquacel silver dressing to the open wound followed by Rik wrap to be changed daily Follow-up with Dr. Hgih in the wound care center next week, call [phone] to make an appointment [facility] - Discharge Disposition: HOME WITH HOME HEALTH SERVICES
== END 2021-02-06 16:57 | disposition home health service (06) | DRG 603 ==
LOC: EC 09:43 → 5NMEDONC 11:39
PROVIDERS: ADMIT Internal Medicine; ATTEND Internal Medicine
PROC: 0HDKXZZ Extraction of Right Lower Leg Skin, External Approach (ICD-10-PCS; principal; 2021-02-04)
PROC: 05HD33Z Insertion of Infusion Device into Right Cephalic Vein, Percutaneous Approach (ICD-10-PCS; 2021-02-06 12:05)
DX: L03.115 Cellulitis of right lower limb (principal); B95.62 Methicillin resistant Staphylococcus aureus infection as the cause of diseases classified elsewhere; E11.9 Type 2 diabetes mellitus without complications; S80.821A Blister (nonthermal), right lower leg, initial encounter; E87.6 Hypokalemia; I10 Essential (primary) hypertension; M85.80 Other specified disorders of bone density and structure, unspecified site; J44.9 Chronic obstructive pulmonary disease, unspecified; I25.2 Old myocardial infarction; Z87.891 Personal history of nicotine dependence; Z88.0 Allergy status to penicillin; Z87.01 Personal history of pneumonia (recurrent)
CPT/HCPCS: 36410; 36415; 76937; 80048; 80053; 80202; 82565; 83735; 85025; 85652; 86140; 87040; 87070; 87205; 94640; 94760

== ENCOUNTER → 2022-03-27 | Outpatient (CLI) | payer BC ==
--- NOTE | 2022-03-28 10:04 | CA ---
Stress Echo Report Emiliano Roy Age: 61 Gender: M : 1960 Exam Date: 03/27/2022 09:23 Exam Location: [place] [facility] Ht (in): 76 Wt (lb): 300 Ordering Physician: Cody Hoffman MD Referring Physician: Fawn Calvin [facility] Ase Certified Technician: DEMARIO Technologist Procedure CPT: Indication: R06.09 Other forms of dyspnea ICD-9 Codes: Rhythm: Patient History: Cardiac Medications: Medications in past 24 hours: Contrast: Lumason Stress Results Protocol: Cristobal Total dose(mL): Exercise Duration (min:sec): 4:[address] Depression (mm): Angina Score: Farmer Score: METS: 6.2 Resting HR: 82 Resting BP: 149 / 93 Peak HR: 143 Peak BP: 200 / 120 Max Predicted HR: 158 91 % Max Predicted HR Target HR: 134 Double Product: 09370 Stress Summary: BP Response: Reason for Termination: Reached target heart rate or work-load Cardiac Symptoms: short of breath ECG Analysis Resting ECG: Stress ECG: Arrhythmia: Echo Analysis Resting Echo: Peak Echo Analysis: MEASUREMENTS (Male/Female) Normal Values CONCLUSIONS Average exercise tolerance Normal EKG in response to exercise Normal echocardiogram in response to exercise Normal stress echocardiogram Dr. Luis Grossman MD (Electronically Signed) Final Date: 28 March 2022 10:03
== END | disposition home or self-care (01) ==
LOC: RADNMMAIN 08:54
PROVIDERS: ATTEND Family Medicine
DX: R06.09 Other forms of dyspnea (principal)
CPT/HCPCS: 93351

== ENCOUNTER → 2022-12-05 | Outpatient (CLI) | payer BC ==
--- NOTE | 2022-12-05 13:49 | NM ---
EXAMINATION TYPE: NM bone 3 phase DATE OF EXAM: 12/05/2022 COMPARISON: NONE CLINICAL INDICATION: Male, 62 years old with history of E11.621; Triple phase bone scintigraphy was performed following the injection of 24.9 mCi Tc 99m MDP. Immedia te images and 5.25 hours post injection images acquired. FINDINGS: There is increased flow to the left foot. There is increased soft tissue uptake overlying the distal margin of the first or second digit left f oot. Delayed imaging demonstrates focal increased uptake involving the distal margin of the first digit. IMPRESSION: Findings compatible cellulitis and osteomyelitis distal margin first digit left foot.
== END | disposition home or self-care (01) ==
LOC: RADNMMAIN 07:17
PROVIDERS: ATTEND Family Medicine
DX: E11.621 Type 2 diabetes mellitus with foot ulcer (principal)
CPT/HCPCS: 78315; A9503

== ENCOUNTER → 2022-12-27 | Outpatient (CLI) | payer BC ==
[2022-12-27 17:18] LABS: Basophils % (A) 1.3 %; Eosinophils # (A) 0.27 X 10*3/uL (0.04-0.35); Eosinophils % (A) 3.6 %; HGB 14.7 d/dL (12.0-15.0); Lymphocytes # (A) 0.86 X 10*3/uL (0.90-5.00); Lymphocytes % (A) 11.4 %; MCH 30.9 pg (27.0-32.0); MCV 88.4 FL (80.0-97.0); Mean Platelet Volume 10.2 FL (9.5-12.2); Monocytes # (A) 0.52 X 10*3/uL (0.20-1.00); Monocytes % (A) 6.9 %; NRBC Per 100 WBC 0 X 10*3/uL (0.00-0.01); Neutrophils # (A) 5.73 X 10*3/uL (1.80-7.70); Neutrophils % (A) 76.3 %; Platelet Count 272 X 10*3/uL (140-440); RBC 4.75 X 10*6/uL (4.40-5.60); RDW 12.4 % (11.5-14.5); WBC 7.52 X 10*3/uL (4.50-10.00)
[2022-12-27 17:20] LABS: ALT 158 U/L (10-49); AST 108 U/L (14-35); Albumin 4.8 d/dL (3.8-4.9); Albumin/Globulin Ratio 1.92 Ratio (1.60-3.17); Alkaline Phosphatase 117 U/L (41-126); Blood Urea Nitrogen 12.7 mg/dL (9.0-27.0); Calcium 10.1 mg/dL (8.7-10.3); Carbon Dioxide 28.6 mmol/L (21.6-31.8); Chloride 83 mmol/L (96-109); Globulin 2.5 d/dL (1.6-3.3); Glucose 107 mg/dL (70-110); Potassium 4.3 mmol/L (3.5-5.5); Sodium 126 mmol/L (135-145); Total Bilirubin 0.5 mg/dL (0.3-1.2); Total Protein 7.3 d/dL (6.2-8.2)
[2022-12-27 17:26] LABS: Erythrocyte Sedimentation Rate 25 mm/Hr (0-20)
== END | disposition home or self-care (01) ==
LOC: LABWHC1 10:01
PROVIDERS: ATTEND Internal Medicine Infectious Disease
DX: M86.9 Osteomyelitis, unspecified (principal)
CPT/HCPCS: 36415; 80053; 85025; 85652; 86140

== ENCOUNTER 2023-06-18 09:53 | Day surgery (SDC) | payer BC ==
[2023-06-14 11:03] VITALS: BMI 36.5
[~2023-06-18 09:53] MED LIST: LACTATED RINGERS 1,000 ML IV SCH; LIDOCAINE 1% (10MG/ML) FOR IV START INTRADERMA PRN
[2023-06-18 10:24] VITALS: RESP 16; TEMP 97.2
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
[2023-06-18] MEDS ORDERED: PROPOFOL 10 MG/ML 20 ML VIAL IV ONE (10:49)
--- NOTE | 2023-06-18 11:12 | P.PCN ---
Date of Procedure: 06/18/23 Procedure(s) Performed: PREOPERATIVE DIAGNOSIS: Colon cancer screening with family history of colon cancer POSTOPERATIVE DIAGNOSIS: Diverticulosis, descending colon polyp, rectal polyp PROCEDURE: Colonoscopy with snare polypectomy ANESTHESIA: MAC SURGEON: Isiah Martinez M.D. SPECIMENS: Polyps ENDOSCOPIC PROCEDURE: The patient was placed on the endoscopy table in the left decubitus position. The Olympus colonoscope was inserted into the anus and passed under direct visualization to the base of the cecum. The appendiceal orifice was visualized. From that point the scope was slowly withdrawn inspecting all surfaces carefully. There were no neoplastic inflammatory or polypoid lesions throughout the cecum, ascending, and transverse colon. In the descending colon at 80 cm a 1 cm polyp was removed using the snare with cautery technique. The remainder of the descending sigmoid colon appeared normal. In the rectum just above the anus there was a small polyp that was removed using the snare with cautery technique as well. The patient had extensive left-sided diverticulosis. The prep was fair. Digital rectal examination was normal. The patient was taken to the recovery room in stable condition per anesthesia guidelines. RECOMMENDATIONS: Await biopsy results. Consider repeat colonoscopy in 3-5 years given the patient's slightly suboptimal prep and findings of polyps.
[2023-06-18 11:37] VITALS: BP 131/86; PULSE 69
== END 2023-06-18 11:54 | disposition home or self-care (01) ==
LOC: ORWHC2ENDO 09:53
PROVIDERS: ATTEND Surgery
DX: Z12.11 Encounter for screening for malignant neoplasm of colon (principal); D12.4 Benign neoplasm of descending colon; D12.8 Benign neoplasm of rectum; K57.30 Diverticulosis of large intestine without perforation or abscess without bleeding; F10.90 Alcohol use, unspecified, uncomplicated; K21.9 Gastro-esophageal reflux disease without esophagitis; I10 Essential (primary) hypertension; E78.5 Hyperlipidemia, unspecified; G47.33 Obstructive sleep apnea (adult) (pediatric); M19.90 Unspecified osteoarthritis, unspecified site; I25.2 Old myocardial infarction; Z80.0 Family history of malignant neoplasm of digestive organs; Z87.891 Personal history of nicotine dependence; Z88.0 Allergy status to penicillin; Z79.899 Other long term (current) drug therapy
CPT/HCPCS: 88305; 45385; J2704

== ENCOUNTER 2023-07-15 19:48 | Observation (INO) | payer BC ==
[2023-07-15 20:16] LABS: Basophils # (A) 0.1 k/uL (0-0.2); Basophils % (A) 1 %; Eosinophils # (A) 0.2 k/uL (0-0.7); Eosinophils % (A) 2 %; HCT 43.1 % (39.0-53.0); HGB 14.8 gm/dL (13.0-17.5); Lymphocytes # (A) 1.3 k/uL (1.0-4.8); Lymphocytes % (A) 11 %; MCH 31.5 pg (25.0-35.0); MCHC 34.4 g/dL (31.0-37.0); MCV 91.5 fL (80.0-100.0); Mean Platelet Volume 7.6; Monocytes # (A) 0.3 k/uL (0-1.0); Monocytes % (A) 3 %; Neutrophils # (A) 9.5 k/uL (1.3-7.7); Neutrophils % (A) 82 %; Platelet Count 196 k/uL (150-450); RBC 4.71 m/uL (4.30-5.90); RDW 13.1 % (11.5-15.5); WBC 11.5 k/uL (3.8-10.6)
[2023-07-15 20:25] LABS: ALT 82 U/L (4-49); AST 48 U/L (17-59); African American GFR (CKD) 83 (>60 ml/min/1.73 sqM); Albumin 4.4 g/dL (3.5-5.0); Alkaline Phosphatase 131 U/L (38-126); Anion Gap 12 mmol/L; Blood Urea Nitrogen 10 mg/dL (9-20); Calcium 9.3 mg/dL (8.4-10.2); Carbon Dioxide 28 mmol/L (22-30); Chloride 94 mmol/L (98-107); Glucose 102 mg/dL (74-99); INR 0.9 (<1.2); Magnesium 1.6 mg/dL (1.6-2.3); Non-African American GFR(CKD) 72 (>60 ml/min/1.73 sqM); Partial Thromboplastin Time 24.6 sec (22.0-30.0); Potassium 3.8 mmol/L (3.5-5.1); Prothrombin Time 10.3 sec (10.0-12.5); Sodium 134 mmol/L (137-145); Total Bilirubin 0.6 mg/dL (0.2-1.3); Total Protein 7.4 g/dL (6.3-8.2)
[2023-07-15 20:58] LABS: Appearance,Urine Clear (Clear); Bilirubin,Urine Negative (Negative); Blood,Urine Negative (Negative); Color,Urine Colorless; Glucose,Urine (UA) Negative (Negative); Ketones,Urine Negative (Negative); Leukocyte Esterase,Urine Negative (Negative); Nitrite,Urine Negative (Negative); PH, Urine 6.5 (5.0-8.0); Protein,Urine Negative (Negative); Specific Gravity,Urine 1.006 (1.001-1.035); Urobilinogen,Urine <2.0 mg/dL (<2.0)
--- NOTE | 2023-07-15 21:04 | XR ---
EXAMINATION TYPE: XR chest 2V DATE OF EXAM: 07/15/2023 8:28 PM CLINICAL INDICATION:Male, 62 years old with history of Chest Pain; COMPARISON: Chest radiographs from 07/15/2023 TECHNIQUE: XR chest 2V Frontal and lateral views of the chest. FINDINGS: Lungs/Pleura: There is flattening of the diaphragm with increased lucency of the lungs. No evidence o f pneumothorax, pleural effusion or focal consolidation. Pulmonary vascularity: Unremarkable. Heart/mediastinum: Cardiomediastinal silhouette is unremarkable. Musculoskeletal: No acute osseous pathology. Other findings: None IMPRESSION: 1. No acute cardiopulmonary disease process. 2. COPD changes.
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
[2023-07-15] MEDS: NITROGLYCERIN SL TABS 0.4 MG TAB SUBLINGUAL PRN (23:59)
[2023-07-16] MEDS: NITROGLYCERIN SL TABS 0.4 MG TAB SUBLINGUAL PRN (00:05)
[2023-07-16] MEDS ORDERED: NALOXONE 0.4 MG/ML 1 ML VIAL IV PRN (00:56)
[2023-07-16] MEDS ORDERED: NITROGLYCERIN OINT 1 INCH/GM PACKET TOPICAL SCH (01:00)
[2023-07-16] MEDS ORDERED: ASPIRIN 325 MG TAB PO STA (04:15)
[2023-07-16] MEDS ORDERED: ATORVASTATIN 80 MG TAB PO STA (04:15)
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
[2023-07-16 05:32] VITALS: TEMP 98.1
[2023-07-16] MEDS: HEPARIN SODIUM,PORCINE 5,000 UNIT/ML 1 ML VIAL SQ SCH ×2 (08:59→15:38)
[2023-07-16] MEDS ORDERED: amLODIPine 5 MG TAB PO SCH ×2 (09:00→21:00)
[2023-07-16] MEDS ORDERED: ASPIRIN 81 MG PO SCH (09:00)
[2023-07-16] MEDS ORDERED: VALSARTAN 160 MG TAB PO SCH (09:00)
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
[2023-07-16 11:17] LABS: Chol/HDL Ratio 4.68 Ratio; LDL Cholesterol,Calculated 118.9 mg/dL (0.0-131.0)
[2023-07-16 12:14] VITALS: RESP 18
--- NOTE | 2023-07-16 14:10 | CA ---
Transthoracic Echo Report Name: Emiliano Roy Age: 62 Gender: M : 1960 Exam Date: 07/16/2023 10:06 Exam Location: [facility] Ht (in): 76 Wt (lb): 290 Ordering Physician: Paradise Davis Attending/Referring Phys: [id number], Ryan Film Archivist Maribel Osborne [facility] Procedure CPT: Indications: LV function Cardiac Hx: Technical Quality: Technically difficult study Contrast 1: Definity Total Dose (mL): 6 Contrast 2: Total Dose (mL): MEASUREMENTS (Male / Female) Normal Values 2D ECHO LV Diastolic Diameter PLAX 4.6 cm 4.2 - 5.9 / 3.9 - 5.3 cm LV Systolic Diameter PLAX 3.2 cm IVS Diastolic Thickness 1.2 cm 0.6 - 1.0 / 0.6 - 0.9 cm LVPW Diastolic Thickness 1.2 cm 0.6 - 1.0 / 0.6 - 0.9 cm LV Relative Wall Thickness 0.5 LVOT Diameter 2.0 cm Aortic Root Diameter 3.5 cm Ascending Aorta Diameter 3.8 cm M-MODE Aortic Root Diameter MM 2.8 cm LA Systolic Diameter MM 4.9 cm LA Ao Ratio MM 1.7 AV Cusp Separation MM 2.1 cm DOPPLER AV Peak Velocity 211.7 cm/s AV Peak Gradient 17.9 mmHg AV Mean Velocity 144.7 cm/s AV Mean Gradient 9.7 mmHg AV Velocity Time Integral 43.1 cm LVOT Peak Velocity 141.8 cm/s LVOT Peak Gradient 8.0 mmHg LVOT Velocity Time Integral 30.9 cm LVOT Stroke Volume 98.0 cm??? LVOT Stroke Volume Index 37.8 ml/m??? LVOT Cardiac Index 2617.7 cm???/min???m??? AV Area Cont Eq vti 2.3 cm??? AV Area Cont Eq pk 2.1 cm??? Mitral E Point Velocity 100.1 cm/s Mitral A Point Velocity 120.9 cm/s Mitral E to A Ratio 0.8 MV Deceleration Time 312.7 ms LV E' Lateral Velocity 14.0 cm/s Mitral E to LV E' Lateral Ratio 7.1 LV E' Septal Velocity 8.6 cm/s Mitral E to LV E' Septal Ratio 11.6 TR Peak Velocity 190.5 cm/s TR Peak Gradient 14.5 mmHg Right Atrial Pressure 8.0 mmHg Pulmonary Artery Systolic Pressu 22.5 mmHg Right Ventricular Systolic Press 22.5 mmHg FINDINGS Left Ventricle Mildly increased left ventricular wall thickness. Left ventricular cavity size normal. Normal left ventricular systolic function with no obvious regional wall motion abnormalities. Left ventricular ejection fraction is estimated at 60- 65%. Right Ventricle Right ventricle at upper limits of normal. Right Atrium Mild right atrial dilatation. Left Atrium Moderate left atrial dilatation. Mitral Valve Mild mitral annular calcification. No mitral regurgitation. Aortic Valve Mildly calcified trileaflet aortic valve. Aortic valve sclerosis. Trace to mild aortic regurgitation. Tricuspid Valve Structurally normal tricuspid valve. Mild tricuspid regurgitation. Pulmonic Valve Pulmonic valve not well visualized. Pericardium No pericardial effusion. Echo free space anterior to the right ventricle likely represents a fat pad. Aorta Aorta at upper limits of normal. CONCLUSIONS Previewed by: Dr. Levy Calabrese MD (Electronically Signed) Final Date: 16 July 2023 14:09
--- NOTE | 2023-07-16 15:40 | P.DS ---
Providers Date of admission: 07/16/23 00:58 Expected date of discharge: 07/16/23 Attending physician: Gretta Lanier MD Consults: 07/16/23 00:56 Consult Physician Routine Consulting Provider: [facility] Consult Reason/Comments: chest pain Do you want consulting provider notified?: Yes Primary care physician: Cody Hoffman [facility] Course: Discharge Diagnosis: Uncontrolled hypertension Leukocytosis Chest pain, ruled out ACS Dyslipidemia GERD Hospital Course: 62-year-old male with a PMH of hypertension who presents to the emergency room with complaints of chest discomfort and shortness of breath. Chest x-ray in the emergency room was unremarkable with EKG showing sinus rhythm with first-degree AV block at 89 bpm. Laboratory evaluation revealed leukocytosis of 11.5, troponin less than 0.012, ALT 82, alk phos 131, sodium 134, and an unremarkable UA. Cholesterol 226, LDL 118, triglycerides 294. Echocardiogram showed an LVEF of 60-65%, no regional wall motion abnormalities. Patient was evaluated by cardiology. Antihypertensives adjusted. Patient being discharged home with close follow-up with PCP and cardiology. Patient seen and examined at bedside. Vital signs reviewed and stable. General: nontoxic, no distress, appears at stated age Derm: warm, dry Head: atraumatic, normocephalic, symmetric Eyes: EOMI, no lid lag, anicteric sclera Mouth: no lip lesion, mucus membranes moist Cardiovascular: S1S2 reg, no murmur Lungs: CTA bilateral, no rhonchi, no rales , no accessory muscle use Abdominal: soft, nontender to palpation, no guarding, no appreciable organomegaly Ext: no gross muscle atrophy, no edema, no contractures Neuro: CN II-XI grossly intact, no focal neuro deficits Psych: Alert, oriented, appropriate affect A total of 33 minutes of time were spent preparing this complex discharge summary. Patient was discharged on 07/16/23 at 1537. Patient Condition at Discharge: Stable Plan - Discharge Summary New Discharge Prescriptions: New Valsartan [Diovan] 320 mg PO DAILY #90 tab Atorvastatin [Lipitor] 40 mg PO HS #90 tab amLODIPine [Norvasc] 5 mg PO HS #90 tab Continue Ascorbic Acid [Vitamin C] 1,000 mg PO DAILY Multivitamins, Thera [Multivitamin (formulary)] 1 tab PO DAILY Aspirin EC [Ecotrin Low Dose] 81 mg PO DAILY Azelastine HCl [Astepro] 1 spray EA NOSTRIL BID Cholecalciferol [Vitamin D3 (25 Mcg = 1000 Iu)] 100 mcg PO DAILY Omeprazole 20 mg PO QAM Vitamin E (Dl,Tocopheryl Acet) [Vitamin E (400 Iu = 180 mg)] 400 unit PO DAILY Gabapentin [Neurontin] 400 mg PO TID Fluticasone Nasal [place] [Flonase Nasal [place]] 1 spray EA NOSTRIL DAILY Discontinued Losartan Potassium [Cozaar] 100 mg PO QAM amLODIPine [Norvasc] 2.5 mg PO DAILY Discharge Medication List Ascorbic Acid [Vitamin C] 1,000 mg PO DAILY 01/31/21 [History] Cholecalciferol [Vitamin D3 (25 Mcg = 1000 Iu)] 100 mcg PO DAILY 01/31/21 [History] Multivitamins, Thera [Multivitamin (formulary)] 1 tab PO DAILY 01/31/21 [History] Omeprazole 20 mg PO QAM 06/14/23 [History] Aspirin EC [Ecotrin Low Dose] 81 mg PO DAILY 07/16/23 [History] Atorvastatin [Lipitor] 40 mg PO HS #90 tab 07/16/23 [Rx] Azelastine HCl [Astepro] 1 spray EA NOSTRIL BID 07/16/23 [History] Fluticasone Nasal [place] [Flonase Nasal [place]] 1 spray EA NOSTRIL DAILY 07/16/23 [History] Gabapentin [Neurontin] 400 mg PO TID 07/16/23 [History] Valsartan [Diovan] 320 mg PO DAILY #90 tab 07/16/23 [Rx] Vitamin E (Dl,Tocopheryl Acet) [Vitamin E (400 Iu = 180 mg)] 400 unit PO DAILY 07/16/23 [History] amLODIPine [Norvasc] 5 mg PO HS #90 tab 07/16/23 [Rx] Follow up Appointment(s)/Referral(s): Cody Hoffman MD [Primary Care Provider] - 1-2 days Sheldon Jesus MD [Medical Doctor] - 1 Week Patient Instructions/Handouts: Mediterranean Diet (DC), Chronic Hypertension (DC) Activity/Diet/Wound Care/Special Instructions: Please see your PCP and cardiology. Discharge Disposition: HOME SELF-CARE
[2023-07-16 15:46] VITALS: BP 140/75; PULSE 69
[2023-07-16] MEDS ORDERED: ATORVASTATIN 80 MG TAB PO SCH (21:00)
[2023-07-17] MEDS ORDERED: ATORVASTATIN 40 MG TAB PO SCH (21:00)
== END 2023-07-16 15:47 | disposition home or self-care (01) ==
LOC: EC 19:48 → 6NMEDSUR 07-16 00:58
PROVIDERS: ADMIT Internal Medicine; ATTEND Internal Medicine
DX: R07.89 Other chest pain (principal); I16.1 Hypertensive emergency; K21.9 Gastro-esophageal reflux disease without esophagitis; E78.5 Hyperlipidemia, unspecified; I10 Essential (primary) hypertension; G47.30 Sleep apnea, unspecified; D72.829 Elevated white blood cell count, unspecified; I25.2 Old myocardial infarction; Z87.891 Personal history of nicotine dependence; Z79.82 Long term (current) use of aspirin; Z79.51 Long term (current) use of inhaled steroids; Z79.899 Other long term (current) drug therapy; Z88.0 Allergy status to penicillin
CPT/HCPCS: 96372; 99285; 36415; 93005; 93306; 80061; 80053; 83735; 84484 ×2; 85025; 85610; 85730; 81003; 83036; 71046; G0378; J1644; Q9957

== ENCOUNTER → 2024-10-22 | Outpatient (CLI) | payer MEDICARE ==
--- NOTE | 2024-10-22 07:40 | US ---
EXAMINATION TYPE: US liver DATE OF EXAM: 10/22/2024 COMPARISON: NONE CLINICAL INDICATION: Male, 64 years old with history of R79.89 OTHER ABN FINDINGS BLOOD CHEMISTRY; TECHNIQUE: Grayscale and color Doppler imaging of the right upper quadrant. FINDINGS: EXAM MEASUREMENTS: Liver Length: 20.7 cm Gallbladder Wall: 0.2 cm CBD: 0.4 cm, color Doppler imaging was utilized to isolate the common bile duct for measurement. Right Kidney: 13.0x6.0x4.7 cm ENVIRONMENTAL REMEDIATION CONSULTANT NOTES: limited scan due to pt body habitus & overlying bowel Pancreas: Obscured by bowel gas Liver: Increased attenuation, decreased visualization of vessels suggestive of fatty infiltrate, dif ficult to penetrate, enlarged Gallbladder: No stones seen Evidence for sonographic Samson's sign: No CBD: wnl Right Kidney: No hydronephrosis or masses seen IMPRESSION: 1. Moderate fatty infiltration and hepatomegaly. [facility], , 10/22/2024 7:38 AM
== END | disposition home or self-care (01) ==
LOC: RADUSWWP 07:05
PROVIDERS: ATTEND Family Medicine
DX: K76.0 Fatty (change of) liver, not elsewhere classified (principal); R16.0 Hepatomegaly, not elsewhere classified; R79.89 Other specified abnormal findings of blood chemistry
CPT/HCPCS: 76705